=== PATIENT | female | born 1960 | race Caucasian/White ===

== ENCOUNTER 2017-01-23 15:29 | Inpatient (IN) | payer OTHER ==
--- NOTE | ~2017-01-23 | DS ---
Discharge Summary [facility] [address] [place]. [address] NAME: NICOLE BEATTY : 62 STATUS : DIS IN PAT#: [id number] AGE: 56 ADM/REG DATE : 01/23/17 MR#: [id number] REPORT SERV DATE: 01/31/17 DICTATED BY: VIJAY CHAMORRO DATE: 01/30/17 REPORT STATUS : Draft TRANSCRIBED BY: MODL DATE: 01/30/17 ADMISSION DATE: 01/23/2017 DISCHARGE DATE: 01/30/2017 DISCHARGE DIAGNOSES: 1. Abdominal wall cellulitis that has resolved. 2. Acute kidney injury, resolved, most recent creatinine 1.04 in the setting of a solitary right kidney. 3. Hypertension. 4. Constipation. 5. Nausea and vomiting, resolved. 6. Morbid obesity. 7. History of hypercoagulable state, on chronic Coumadin therapy. Most recent INR 2.3. 8. Headache, resolved. 9. Rash, improved with Benadryl. 10.History of bipolar, anxiety, and depression. DISCHARGE MEDICATIONS: Lexapro 10 mg daily, Colace 100 mg twice a day, doxycycline 100 mg twice a day for two more days, Synthroid 175 mcg daily, Trileptal 300 mg daily and 600 mg at bedtime, pravastatin 40 mg at bedtime, trazodone 100 mg at bedtime, Calan 120 mg daily, Coumadin 3 mg daily, Geodon 160 mg at bedtime, Catapres 0.2 mg twice a day, valsartan/hydrochlorothiazide 160/25 one tablet daily, and niacin 500 mg p.o. twice a day. HISTORY OF PRESENT ILLNESS: This is a very pleasant 56-year-old white female who presented with cellulitis and small abscess on the lower abdominal area. Please see the initial H and P of Dr. Dennys Sorensen. This patient was admitted to the Hospitalist Service for further evaluation and treatment. She was started on empiric antibiotic coverage. Cultures were sent and lab work was ordered and followed. HOSPITAL COURSE: Further lab work showed that the patient had a negative procalcitonin level and a hemoglobin A1c came back at 6.4, so Diabetes Education was consulted and saw the patient during this admission as well with instruction. I have discussed with the patient need for weight loss and further followup with her primary care in regard to her blood sugars. The patient continued on her IV antibiotics, and her cellulitis began to improve quite well. However, she was found to be quite hypertensive, which necessitated the use of additional blood pressure medicine control during this admission, again with blood pressures increasing to the 180s systolic range. The cellulitis did continue to resolve, and with the additional blood pressure medicines of amlodipine and labetalol, her blood pressures were able to be somewhat improved. The patient did develop some significant constipation during this admission, which necessitated the use of several different laxatives, enemas and with result of a bowel movement finally, but this was causing her some mild discomfort and also some nausea and vomiting, but this has since resolved since the patient is treated and had her bowel movement. She was able to be ambulated in the hallway, was able to eat and drink well. Her blood pressure regimen was able to be decreased and weaned back down to her prior home regimen and attempted during this admission to start some metformin, but given her history of a solitary right kidney, I have instructed her to follow up with her primary care Discharge Summary [address] [place]. [address] NAME: NICOLE BEATTY : 62 STATUS : DIS IN PAT#: [id number] AGE: 56 ADM/REG DATE : 01/23/17 MR#: [id number] REPORT SERV DATE: 01/31/17 DICTATED BY: VIJAY CHAMORRO DATE: 01/30/17 REPORT STATUS : Draft TRANSCRIBED BY: FIGUEROA DATE: 01/30/17 for further management again of her blood sugar followup and instructed on need for weight loss and the patient's rash probably related to the use of niacin which she takes at home, flushing that she has. Overall, the patient showed improvement with her cellulitis and felt safe for discharge home on 01/30/2017 to follow up with her primary care, Dr. Maggi Singh, to further discuss medications and to recheck her blood pressure. Imaging during this admission did include a CT of the abdomen and pelvis on 01/24/2017 that showed a mild diffuse skin thickening of the low abdominal pannus, which reflects reported cellulitis, prior cholecystectomy and hysterectomy, some very mild diverticulosis but no diverticulitis, and absent left kidney. Please note that greater than 30 minutes was spent on this discharge for medication teaching, followup planning, and further disposition. Questions were answered at bedside with the patient and family. CSC/MODL Vijay Chamorro NP / [id number] CC: Clive Marvin MD
--- NOTE | ~2017-01-23 | HP ---
History And Physical [facility] [id number] [place]. [address] NAME: NICOLE BEATTY : 62 STATUS : ADM IN [facility]#: [id number] AGE: 56 ADM/REG DATE : 01/23/17 MR#: [id number] REPORT SERV DATE: 01/23/17 DICTATED BY: MARIA DEL CARMEN COCHRAN DATE: 01/23/17 REPORT STATUS : Draft TRANSCRIBED BY: MODL DATE: 01/23/17 DATE OF ADMISSION: 01/23/2017 CHIEF COMPLAINT: Cellulitis/abscess. HISTORY OF PRESENT ILLNESS: The patient is a 56-year-old female. She has a past medical history significant for, 1. Hypertension. 2. Hyperlipidemia. 3. Bipolar disorder with anxiety, depression. 4. She also has a history of hypercoagulable state on chronic Coumadin and hypothyroidism. She presents today as a referral from outpatient PCP for cellulitis/abscess. The patient states on the left lower abdomen under the pannus, she noticed perhaps as long as two weeks ago a small boil. She states it was more of a small blister was not really symptomatic except for the past several days. She noticed increasing pain, redness, and erythema. It seemed to be getting worse, so she presented to her PCP's office today. On evaluation, they noted the lesion and surrounding erythema. It was lanced. Specimen was brought, will be sent for culture. She states that it feels slightly better after draining. She does not report any injury, bite, or other abnormality there that she was aware of prior to the problem. PAST MEDICAL HISTORY: As covered above. PAST SURGICAL HISTORY: x4, complete hysterectomy, shoulder surgery, and cholecystectomy. CURRENT MEDICATIONS: Her pharmacy list is pending. ALLERGIES: ULTRAM, WELLBUTRIN, PHENERGAN, PERCODAN, LISINOPRIL, AND RISPERIDONE. FAMILY HISTORY: Both parents . Father had an OK in his 50s. Mother had cardiovascular disease and diabetes. SOCIAL HISTORY: She is a nondrinker, nonsmoker. REVIEW OF SYSTEMS: HEENT: Negative. CARDIOVASCULAR: No chest pain, palpitations. PULMONARY: No shortness of breath or cough. GI: No nausea, vomiting. : No dysuria, frequency, urgency. NEUROMUSCULOSKELETAL: No aches, pains, myalgias. Remainder of 14-point review of systems is negative. PHYSICAL EXAMINATION: VITAL SIGNS: Currently pending. History And Physical [address] [place]. [address] NAME: NICOLE BEATTY : 62 STATUS : ADM IN [facility]#: [id number] AGE: 56 ADM/REG DATE : 01/23/17 MR#: [id number] REPORT SERV DATE: 01/23/17 DICTATED BY: MARIA DEL CARMEN COCHRAN DATE: 01/23/17 REPORT STATUS : Draft TRANSCRIBED BY: FIGUEROA DATE: 01/23/17 GENERAL: She is awake, alert, oriented. HEENT: Normocephalic, atraumatic. Sclerae nonicteric. NECK: Supple. HEART: Regular rate and rhythm. LUNGS: Clear to auscultation without rhonchi, rales, or wheezes. ABDOMEN: Obese, benign on the left. Lower quadrant under the pannus just superior to the pubic area there is a palpable lesion with surrounding erythema, several centimeters in diameter. It has been lanced, is draining a slightly bloody fluid. She does not have any guarding, rebound tenderness. EXTREMITIES: Show trace edema. LAB: None to review. ASSESSMENT: 1. Cellulitis. 2. Chronic medical problems listed above. PLAN: 1. The patient has been admitted. 2. IV antibiotics to cover certainly Staph. Culture results when available, we will check an INR. 3. She requested be screen for diabetes. She states she has had a fasting blood sugar over 200. We will certainly do so. Continue her home medications when her pharmacy list is available. OBED/FIGUEROA Maria Del Carmen Cochran M.D. / [id number] CC: Maria Del Carmen Cochran M.D.
[2017-01-23] MEDS ORDERED: GEODON80 PO (16:36)
[2017-01-23] MEDS ORDERED: PRAVACHOL40 MG PO (16:36)
[2017-01-23] MEDS ORDERED: COUMADIN3 MG PO (16:36)
[2017-01-23] MEDS ORDERED: CAT2 PO (16:36)
[2017-01-23] MEDS ORDERED: LEXAPRO10 PO (16:37)
[2017-01-23] MEDS ORDERED: DIOVAN HCT160 MG/25 PO (16:37)
[2017-01-23] MEDS ORDERED: CALAN120 MG PO (16:37)
[2017-01-23] MEDS ORDERED: LEVOTHYROXIN175 MCG PO (16:38)
[2017-01-23] MEDS ORDERED: TRILEPTAL600 MG PO (16:38)
[2017-01-23] MEDS ORDERED: TRILEP300 PO (16:38)
[2017-01-23] MEDS ORDERED: TRAZ100 PO (16:38)
[2017-01-23] MEDS ORDERED: NIACIN 500 PO (16:39)
[2017-01-23 17:58] LABS: BASOPHILS 0.3 %; BASOPHILS ABSOLUTE 0.03 10/3/uL (0.0-0.16); EOSINOPHILS 1.3 %; EOSINOPHILS ABSOLUTE 0.13 10/3/uL (0.0-0.53); HEMATOCRIT 41.7 % (36.0-48.0); HEMOGLOBIN 14.1 g/dL (12.0-16.0); IMMATURE GRANULOCYTES 0.2 %; IMMATURE GRANULOCYTES ABSOLUTE 0.02 10/3/uL (0.0-0.11); LYMPHOCYTES 21.7 %; MANUAL DIFF NO %; MEAN CORPUS HGB CONC 33.8 g/dL (32.0-36.0); MEAN CORPUSCULAR HEMOGLOB 31.5 pg (26.0-34.0); MEAN CORPUSCULAR VOLUME 93.3 fL (80-100); MEAN PLATELET VOLUME 9.6 fL (9.2-13.0); MONOCYTES 8.8 %; MONOCYTES ABSOLUTE 0.85 10/3/uL (0.21-1.20); NEUTROPHILS 67.7 %; NEUTROPHILS ABSOLUTE 6.55 10/3/uL (2.02-8.40); PLATELET COUNT 245 10/3/uL (150-400); RBC DISTRIBUTION WIDTH 13.6 % (12.0-16.0); RED CELL COUNT 4.47 10/6/uL (4.0-5.6); WHITE BLOOD CELLS 9.7 10/3/uL (4.5-10.5)
[2017-01-23 18:05] LABS: INTERNATIONAL NORMAL RATI 1.9 UNITS (-); PARTIAL THROMBO TIME 35.4 SEC (22.5-37.2); PROTIME (NOT ORD) 21.4 SEC (12.0-14.5)
[2017-01-23 18:21] LABS: BUN (BLOOD UREA NITROGEN) 15 MG/DL (6-23); CALCIUM, SERUM 10.3 MG/DL (8.5-10.4); CHLORIDE, SERUM 102 MMOL/L (96-112); CO2 (CARBON DIOXIDE) 34 MMOL/L (24-34); CREATININE 1.28 MG/DL (0.55-1.02); GFR AFRICAN AMERICAN 54 ML/MIN (>=60); GFR NON AFRICAN AMERICAN 47 ML/MIN (>=60); GLUCOSE, SERUM 134 MG/DL (60-99); POTASSIUM, SERUM 3.8 MMOL/L (3.5-5.3); SODIUM, SERUM 140 MMOL/L (135-148)
[2017-01-23 19:56] LABS: PROCALCITONIN <0.05 ng/mL (<0.5)
[2017-01-24 06:43] LABS: INTERNATIONAL NORMAL RATI 1.9 UNITS (-); PROTIME (NOT ORD) 21.7 SEC (12.0-14.5)
[2017-01-25 06:07] LABS: BASOPHILS 0.7 %; BASOPHILS ABSOLUTE 0.04 10/3/uL (0.0-0.16); EOSINOPHILS 4.4 %; EOSINOPHILS ABSOLUTE 0.25 10/3/uL (0.0-0.53); HEMATOCRIT 38.6 % (36.0-48.0); HEMOGLOBIN 13.3 g/dL (12.0-16.0); IMMATURE GRANULOCYTES 0.4 %; IMMATURE GRANULOCYTES ABSOLUTE 0.02 10/3/uL (0.0-0.11); LYMPHOCYTES 37.9 %; LYMPHOCYTES ABSOLUTE 2.14 10/3/uL (0.67-4.30); MEAN CORPUS HGB CONC 34.5 g/dL (32.0-36.0); MEAN CORPUSCULAR HEMOGLOB 31.3 pg (26.0-34.0); MEAN CORPUSCULAR VOLUME 90.8 fL (80-100); MEAN PLATELET VOLUME 9.5 fL (9.2-13.0); MONOCYTES 9.4 %; MONOCYTES ABSOLUTE 0.53 10/3/uL (0.21-1.20); NEUTROPHILS 47.2 %; NEUTROPHILS ABSOLUTE 2.66 10/3/uL (2.02-8.40); PLATELET COUNT 206 10/3/uL (150-400); RBC DISTRIBUTION WIDTH 12.8 % (12.0-16.0); RED CELL COUNT 4.25 10/6/uL (4.0-5.6)
[2017-01-25 06:09] LABS: INTERNATIONAL NORMAL RATI 1.9 UNITS (-)
[2017-01-25 06:10] LABS: MANUAL DIFF NO %; WHITE BLOOD CELLS 5.6 10/3/uL (4.5-10.5)
[2017-01-25 06:21] LABS: BUN (BLOOD UREA NITROGEN) 13 MG/DL (6-23); CALCIUM, SERUM 9.6 MG/DL (8.5-10.4); CHLORIDE, SERUM 100 MMOL/L (96-112); GFR AFRICAN AMERICAN 73 ML/MIN (>=60); GFR NON AFRICAN AMERICAN 63 ML/MIN (>=60); GLUCOSE, SERUM 143 MG/DL (60-99); POTASSIUM, SERUM 3.3 MMOL/L (3.5-5.3); SODIUM, SERUM 136 MMOL/L (135-148)
[2017-01-25 06:22] LABS: CO2 (CARBON DIOXIDE) 29 MMOL/L (24-34)
[2017-01-26 06:02] LABS: BUN (BLOOD UREA NITROGEN) 10 MG/DL (6-23); CALCIUM, SERUM 10.3 MG/DL (8.5-10.4); CHLORIDE, SERUM 100 MMOL/L (96-112); CO2 (CARBON DIOXIDE) 26 MMOL/L (24-34); CREATININE 1.12 MG/DL (0.55-1.02); GFR AFRICAN AMERICAN 64 ML/MIN (>=60); GFR NON AFRICAN AMERICAN 55 ML/MIN (>=60); GLUCOSE, SERUM 131 MG/DL (60-99); POTASSIUM, SERUM 4.1 MMOL/L (3.5-5.3); SODIUM, SERUM 135 MMOL/L (135-148)
[2017-01-26 06:06] LABS: INTERNATIONAL NORMAL RATI 1.7 UNITS (-); PROTIME (NOT ORD) 19.7 SEC (12.0-14.5)
[2017-01-27 06:22] LABS: BASOPHILS 0.2 %; BASOPHILS ABSOLUTE 0.02 10/3/uL (0.0-0.16); EOSINOPHILS 0.1 %; EOSINOPHILS ABSOLUTE 0.01 10/3/uL (0.0-0.53); HEMATOCRIT 40.2 % (36.0-48.0); HEMOGLOBIN 14.3 g/dL (12.0-16.0); IMMATURE GRANULOCYTES 0.7 %; IMMATURE GRANULOCYTES ABSOLUTE 0.06 10/3/uL (0.0-0.11); LYMPHOCYTES 12.5 %; LYMPHOCYTES ABSOLUTE 1.06 10/3/uL (0.67-4.30); MEAN CORPUS HGB CONC 35.6 g/dL (32.0-36.0); MEAN CORPUSCULAR HEMOGLOB 31.7 pg (26.0-34.0); MEAN CORPUSCULAR VOLUME 89.1 fL (80-100); MEAN PLATELET VOLUME 9.4 fL (9.2-13.0); MONOCYTES 4.3 %; MONOCYTES ABSOLUTE 0.37 10/3/uL (0.21-1.20); NEUTROPHILS 82.2 %; NEUTROPHILS ABSOLUTE 6.99 10/3/uL (2.02-8.40); PLATELET COUNT 229 10/3/uL (150-400); RBC DISTRIBUTION WIDTH 13.2 % (12.0-16.0); RED CELL COUNT 4.51 10/6/uL (4.0-5.6)
[2017-01-27 06:23] LABS: MANUAL DIFF NO %; WHITE BLOOD CELLS 8.5 10/3/uL (4.5-10.5)
[2017-01-27 06:39] LABS: ALBUMIN 3.6 G/DL (3.5-5.0); ALKALINE PHOSPHATASE 68 U/L (45-117); BUN (BLOOD UREA NITROGEN) 9 MG/DL (6-23); CALCIUM, SERUM 10.3 MG/DL (8.5-10.4); CHLORIDE, SERUM 99 MMOL/L (96-112); CO2 (CARBON DIOXIDE) 25 MMOL/L (24-34); CREATININE 1.05 MG/DL (0.55-1.02); GFR AFRICAN AMERICAN 69 ML/MIN (>=60); GFR NON AFRICAN AMERICAN 60 ML/MIN (>=60); POTASSIUM, SERUM 3.9 MMOL/L (3.5-5.3); SGOT(AST) 23 U/L (5-40); SGPT(ALT) 24 U/L (5-65); SODIUM, SERUM 134 MMOL/L (135-148); TOTAL BILIRUBIN 0.2 MG/DL (0-1.2); TOTAL PROTEIN 7.1 G/DL (6.0-8.5)
[2017-01-27 06:40] LABS: GLOBULIN 3.5 G/DL (2.5-4.1); GLUCOSE, SERUM 159 MG/DL (60-99)
[2017-01-27 07:22] LABS: INTERNATIONAL NORMAL RATI 1.6 UNITS (-); PROTIME (NOT ORD) 19.2 SEC (12.0-14.5)
[2017-01-28 06:06] LABS: INTERNATIONAL NORMAL RATI 1.6 UNITS (-)
[2017-01-29 06:44] LABS: INTERNATIONAL NORMAL RATI 2.9 UNITS (-)
[2017-01-29 06:45] LABS: PROTIME (NOT ORD) 29.8 SEC (12.0-14.5)
[2017-01-29 06:47] LABS: CALCIUM, SERUM 9.5 MG/DL (8.5-10.4); CHLORIDE, SERUM 100 MMOL/L (96-112); CO2 (CARBON DIOXIDE) 27 MMOL/L (24-34); SODIUM, SERUM 135 MMOL/L (135-148)
[2017-01-29 06:49] LABS: BUN (BLOOD UREA NITROGEN) 13 MG/DL (6-23); CREATININE 1.98 MG/DL (0.55-1.02); GFR AFRICAN AMERICAN 32 ML/MIN (>=60); GFR NON AFRICAN AMERICAN 28 ML/MIN (>=60); GLUCOSE, SERUM 112 MG/DL (60-99); POTASSIUM, SERUM 3.7 MMOL/L (3.5-5.3)
[2017-01-29 11:35] LABS: ASCORBIC ACID (UR NOT ORDER) NEG (NEG); BILIRUBIN, URINE NEGATIVE (NEG); KETONE, URINE NEGATIVE (NEG); LEUKOCYTE ESTERASE(NOT OR NEG (NEG); WBC (NOT ORDERED) (RFLEX) 5 (0-5)
[2017-01-29 17:10] LABS: BUN (BLOOD UREA NITROGEN) 16 MG/DL (6-23); CALCIUM, SERUM 9.6 MG/DL (8.5-10.4); CHLORIDE, SERUM 98 MMOL/L (96-112); GFR AFRICAN AMERICAN 46 ML/MIN (>=60); GFR NON AFRICAN AMERICAN 40 ML/MIN (>=60); GLUCOSE, SERUM 106 MG/DL (60-99); POTASSIUM, SERUM 3.4 MMOL/L (3.5-5.3); SODIUM, SERUM 134 MMOL/L (135-148)
[2017-01-29 17:11] LABS: CO2 (CARBON DIOXIDE) 32 MMOL/L (24-34); CREATININE 1.46 MG/DL (0.55-1.02)
[2017-01-30 07:01] LABS: BASOPHILS 0.7 %; BASOPHILS ABSOLUTE 0.04 10/3/uL (0.0-0.16); EOSINOPHILS 3.3 %; HEMATOCRIT 36.8 % (36.0-48.0); HEMOGLOBIN 12.4 g/dL (12.0-16.0); IMMATURE GRANULOCYTES 1.3 %; IMMATURE GRANULOCYTES ABSOLUTE 0.08 10/3/uL (0.0-0.11); LYMPHOCYTES 37.8 %; LYMPHOCYTES ABSOLUTE 2.27 10/3/uL (0.67-4.30); MEAN CORPUSCULAR HEMOGLOB 31.6 pg (26.0-34.0); MEAN PLATELET VOLUME 8.8 fL (9.2-13.0); MONOCYTES 9.3 %; MONOCYTES ABSOLUTE 0.56 10/3/uL (0.21-1.20); NEUTROPHILS 47.6 %; NEUTROPHILS ABSOLUTE 2.85 10/3/uL (2.02-8.40); PLATELET COUNT 212 10/3/uL (150-400); RBC DISTRIBUTION WIDTH 13.4 % (12.0-16.0); RED CELL COUNT 3.93 10/6/uL (4.0-5.6)
[2017-01-30 07:03] LABS: INTERNATIONAL NORMAL RATI 2.3 UNITS (-)
[2017-01-30 07:04] LABS: PROTIME (NOT ORD) 25.2 SEC (12.0-14.5)
[2017-01-30 07:09] LABS: BUN (BLOOD UREA NITROGEN) 11 MG/DL (6-23); CALCIUM, SERUM 9.3 MG/DL (8.5-10.4); CHLORIDE, SERUM 103 MMOL/L (96-112); CO2 (CARBON DIOXIDE) 28 MMOL/L (24-34); CREATININE 1.04 MG/DL (0.55-1.02); GFR AFRICAN AMERICAN 70 ML/MIN (>=60); GFR NON AFRICAN AMERICAN 60 ML/MIN (>=60); GLUCOSE, SERUM 112 MG/DL (60-99); POTASSIUM, SERUM 3.2 MMOL/L (3.5-5.3); SODIUM, SERUM 140 MMOL/L (135-148)
[2017-01-30 07:11] LABS: MANUAL DIFF NO %; MEAN CORPUS HGB CONC 33.7 g/dL (32.0-36.0); MEAN CORPUSCULAR VOLUME 93.6 fL (80-100)
[2017-01-30] MEDS ORDERED: MONODOX100 MG PO (12:57)
== END 2017-01-30 15:27 | disposition home or self-care (01) | DRG 603 ==
LOC: 4SO 15:29
PROVIDERS: Internal Medicine; Nurse Practitioner Family; Student in an Organized Health Care Education/Training Program
DX: L03.311 Cellulitis of abdominal wall (principal); N17.9 Acute kidney failure, unspecified; D68.59 Other primary thrombophilia; Z68.42 Body mass index [BMI] 45.0-49.9, adult; Q60.0 Renal agenesis, unilateral; E11.65 Type 2 diabetes mellitus with hyperglycemia; E66.01 Morbid (severe) obesity due to excess calories; I10 Essential (primary) hypertension; E78.5 Hyperlipidemia, unspecified; F31.9 Bipolar disorder, unspecified; E03.9 Hypothyroidism, unspecified; Z79.01 Long term (current) use of anticoagulants; Z88.8 Allergy status to other drugs, medicaments and biological substances; F41.9 Anxiety disorder, unspecified; Z88.5 Allergy status to narcotic agent; L02.211 Cutaneous abscess of abdominal wall; K59.00 Constipation, unspecified; R21 Rash and other nonspecific skin eruption; Z88.1 Allergy status to other antibiotic agents; R51 Headache; T46.7X5A Adverse effect of peripheral vasodilators, initial encounter; Y92.009 Unspecified place in unspecified non-institutional (private) residence as the place of occurrence of the external cause
CPT/HCPCS: 74000; 74176; 80048; 80053; 80202; 81001; 82384; 82962; 83036; 83735; 83835; 84132; 84145; 84443; 85025; 85610; 85730; 87070; 87205; A9270-GY; J0360; J1170; J2405; J2543; J2765; J3370